=== PATIENT | male | born 1945 | race Caucasian/White ===

== ENCOUNTER 2019-05-26 18:04 | Inpatient (IN) ==
[~2019-05-26 18:04] MED LIST: SOLU-MEDROL IV SCH
[2019-05-26] MEDS ORDERED: DUONEB (A & A) ONE (18:08)
[2019-05-26] MEDS ORDERED: DUONEB (A & A) INH ONE (18:12)
[2019-05-26] MEDS ORDERED: SOLU-MEDROL IV ONE (18:13)
[2019-05-26] MEDS ORDERED: MAGNESIUM SULFATE 1 GM/D5W 1 GM/100 ML IVPB IV ONE (18:14)
[2019-05-26 18:29] LABS: BASO# 0.07 X1000 (0.0-0.2); BASO% 0.6 % (0.0-0.8); EOS# 0.41 X1000 (0.0-0.7); EOS% 3.3 % (0.0-10.0); HEMATOCRIT 52.8 % (42.0-52.0); HEMOGLOBIN 16.4 g/dL (14.0-18.0); IMM GRAN# 0.05 X1000 (0.0-0.04); IMM GRAN% 0.4 % (0.0-0.5); LYMPH# 3.04 X1000 (1.2-3.4); LYMPH% 24.3 % (20.5-51.1); MCH 27.4 PG (27-31); MCHC 31.1 g/dL (33-37); MCV 88.3 FL (81-99); MONO# 1.33 X1000 (0.11-0.59); MONO% 10.6 % (1.7-9.3); MPV 11.7 FL (7.4-10.4); NEUT# 7.61 X1000 (1.4-6.5); NEUT% 60.8 % (42.2-75.2); PLT 241 X1000 (130-400); RBC 5.98 XMIL (4.7-6.1); RDW 13.9 % (11.5-14.5); WBC 12.51 X1000 (4.8-10.8)
[2019-05-26 18:34] LABS: BLOOD TYPE ARTERIAL; SAMPLE BLOOD
[2019-05-26 18:35] LABS: HCO3-(ACT) 20.1 mmoll (20.0-26.0); METHB 0.8 % (0.0-1.5); O2(CT) 22.2 mL/dL (15.0-23.0); O2HB 94.5 % (95.0-99.0); PO2(98.6) 93 mmHg (60-100); SAO2 97.5 % (95.0-100.0); THB 16.7 g/dL (11.5-17.4)
[2019-05-26 18:39] LABS: MODALITY VENTIMASK; PCO2(98.6) 64 mmHg (35-45); pH(98.6) 7.18 (7.35-7.45)
[2019-05-26 18:40] LABS: ALLEN TEST YES
--- NOTE | 2019-05-26 18:48 | Diag Imaging Result Doc PS360 ---
CHEST-PORTABLE - 05/26/2019 INDICATION: sob COMPARISON: 09/29/2017 FINDINGS: Lung volumes are much lower. There is some nonspecific atelectasis or infiltrate in both lung bases as a result. Stable sternotomy changes. Heart size remains top normal. IMPRESSION: Much lower lung volumes. Nonspecific increasing atelectasis or infiltrate in both lung bases. Electronically signed by Reji Pablo 05/26/2019 6:46 PM
[2019-05-26 19:03] LABS: ALBUMIN 4.7 g/dL (3.5-5.0); CALCIUM 8.6 mg/dL (8.8-10.2); CREATININE 1.3 mg/dL (0.7-1.2); POTASSIUM 5.3 mmol/L (3.5-5.1); TOTAL BILIRUBIN 0.3 mg/dL (0.20-1.00); TOTAL PROTEIN 8.1 g/dL (6.3-8.3)
[2019-05-26 19:20] LABS: INR 0.96; PROTIME 13.3 Seconds (11.0-16.0)
[2019-05-26 19:21] LABS: PTT 33.2 Seconds (22.3-41.8)
--- NOTE | 2019-05-26 19:25 | PROVIDER DOCUMENTATION ---
This chart was entered by Yanira Mahoney Scribe, acting as scribe for Paco Ortiz MD. HPI-Respiratory General - General Chief Complaint: Shortness of Breath Stated Complaint: SOB / CHF Time Seen by Provider: 05/26/19 18:09 Source: RN/, RN notes reviewed Allergies/Adverse Reactions: Patient Allergies Allergy/AdvReac Type Severity Reaction Status Date / Time No Known Allergies Allergy Verified 05/26/19 18:14 - History of Present Illness-Resp Nature of Presenting Problem: pt is a 74 yom arriving via private car for sob starting this am and low o2. pt has hx of chf and copd, uses o2 at home but no portable tank. pt is wheezing, hypoxic and in mild distress in er. pt former smoker. Quality of Pain: reports: none Severity in ED: reports: mild Onset/Duration: reports: this morning Timing: reports: still present Exposure: reports: unknown cause Cough Quality/Degree: reports: no cough Review of Systems - Adult - REVIEW OF SYSTEMS - ADULT Constitutional: reports: no symptoms reported. denies: chills, fever, fatique Eyes: reports: no symptoms reported Ears, Nose, Mouth & Throat: reports: no symptoms reported Cardiovascular: reports: no symptoms reported Respiratory: reports: see HPI, shortness of breath, wheezing, other (hypoxic). denies: chronic cough, cough, excessive sputum production Gastrointestinal: reports: no symptoms reported Genitourinary: reports: no symptoms reported Musculoskeletal: reports: no symptoms reported Integumentary: reports: no symptoms reported Neurological: reports: no symptoms reported Psychiatric: reports: no symptoms reported Endocrine: reports: no symptoms reported Hematologic/Lymphatic: reports: no symptoms reported Allergic/Immunologic: reports: no symptoms reported All Other Systems: Reviewed and Negative Past History - Adult - PAST MEDICAL HISTORY-ADULT Review of Records: reports: Old Records Reviewed, Nursing Assessment Review, Medications Reviewed, Social history reviewed & non-contributory. Major Childhood Illnesses: reports: denies history Cardiovascular: reports: CHF Respiratory: reports: COPD Gastrointestinal: reports: denies history Obstetrical/Gynecological: reports: denies history Genitourinary: reports: denies history Musculoskeletal: reports: denies history Neurological: reports: denies history Endocrine/Immune: reports: denies history Other Conditions: reports: denies history - PRIOR SURGERIES/PROCEDURES Surgical/Procedure History: reports: other - IMMUNIZATION STATUS Childhood Immunizations: See Nurse Assessment Flu Vaccine: See Nurse Assessment - FAMILY HISTORY Family History: reviewed, not pertinent - SOCIAL HISTORY Smoking: other (former smoker, used to smoke 3 packs daily for years) Substance Use: none/never Physical Exam-General - PHYSICAL EXAM-ADULT Initial Vital Signs Reviewed: Yes - CONSTITUTIONAL General Appearance: alert, mild distress. negative: anxious, lethargic, combative - EYES Eyes: PERRL/EOMI, pink conjunctivae - HEAD, EARS, NOSE, MOUTH & THROAT HENMT: normocephalic/atraumatic, moist mucous membranes, normal ENT inspection - NECK Neck: non-tender, full range of motion, supple, normal inspection - RESPIRATORY Respiratory: chest non-tender, normal breath sounds, no pleuratic chest pain, no accessory muscle use, respiratory distress, wheezing. negative: lungs clear, no respiratory distress, decreased breath sounds - CARDIOVASCULAR Cardiovascular: normal peripheral pulses, no edema, no gallop, no JVD, no murmur , tachycardia. negative: regular rate, rhythm, JVD, bradycardia - GASTROINTESTINAL (ABDOMEN) Abdominal Exam: normal bowel sounds, non tender, soft - LYMPHATIC Lymphatic: no adenopathy - MUSCULOSKELETAL Back Exam: normal inspection, no CVA tenderness, no vertebral tenderness Extremity: normal range of motion, non-tender, normal inspection Peripheral Pulses: radial (R): 2+, radial (L): 2+ - SKIN Integumentary: normal color, normal turgor, warm/dry - NEUROLOGIC Neurologic: grossly normal, no motor/sensory deficits - PSYCHIATRIC Psych/Mental Status: normal mood/affect, normal thought content, normal thought process, oriented x 3 Progress - PLAN OF CARE/RESULTS Progress/Plan/Lab Results: Vital Signs - 8 hr 05/26/19 18:09 05/26/19 18:25 Temperature 98 F Pulse Rate 113 H 113 H Respiratory Rate 29 H 28 H O2 Sat by Pulse Oximetry 90 L 98 Laboratory Results - last 24 hr 05/26/19 05/26/19 05/26/19 18:11 18:11 18:11 WBC 12.51 H RBC 5.98 Hgb 16.4 Hct 52.8 H MCV 88.3 MCH 27.4 MCHC 31.1 L RDW Std Deviation 13.9 Plt Count 241 MPV 11.7 H Immature Gran % (Auto) 0.4 Neut % (Auto) 60.8 Lymph % (Auto) 24.3 Schuyler % (Auto) 10.6 H Eos % (Auto) 3.3 Baso % (Auto) 0.6 Immature Gran # (Auto) 0.05 H Neut # (Auto) 7.61 H Lymph # (Auto) 3.04 Schuyler # (Auto) 1.33 H Eos # (Auto) 0.41 Baso # (Auto) 0.07 PT INR PTT (Actin FS) Specimen Type Sample Site pH pCO2 pO2 HCO3 Base Excess Oxyhemoglobin ABG O2 Sat (Calculated) ABG O2 Saturation ABG Carboxyhemoglobin ABG Methemoglobin Krishna Test A-a O2 Difference Total Hemoglobin Lactate Liter Flow Blood Gas Modality FiO2 % Sodium Potassium Chloride Carbon Dioxide Anion Gap BUN Creatinine Estimated GFR/1.73 m2 BUN/Creatinine Ratio Glucose Calculated Osmolality Calcium Total Bilirubin AST ALT Alkaline Phosphatase Creatine Kinase 66 Troponin T < 0.010 [id number]-Hmgeyzezdqr Pept Total Protein Albumin Globulin Albumin/Globulin Ratio Plasma Lactate 05/26/19 05/26/19 05/26/19 18:11 18:11 18:11 WBC RBC Hgb Hct MCV MCH MCHC RDW Std Deviation Plt Count MPV Immature Gran % (Auto) Neut % (Auto) Lymph % (Auto) Schuyler % (Auto) Eos % (Auto) Baso % (Auto) Immature Gran # (Auto) Neut # (Auto) Lymph # (Auto) Schuyler # (Auto) Eos # (Auto) Baso # (Auto) PT 13.3 INR 0.96 PTT (Actin FS) 33.2 Specimen Type Sample Site pH pCO2 pO2 HCO3 Base Excess Oxyhemoglobin ABG O2 Sat (Calculated) ABG O2 Saturation ABG Carboxyhemoglobin ABG Methemoglobin Krishna Test A-a O2 Difference Total Hemoglobin Lactate Liter Flow Blood Gas Modality FiO2 % Sodium 140 Potassium 5.3 H Chloride 104 Carbon Dioxide 23 L Anion Gap 13 BUN 19 Creatinine 1.3 H Estimated GFR/1.73 m2 54 BUN/Creatinine Ratio 15 Glucose 157 H Calculated Osmolality 285 Calcium 8.6 L Total Bilirubin 0.30 AST 13 ALT 8 L Alkaline Phosphatase 106 Creatine Kinase Troponin T Fgs-D-Oazbtiathaa Pept 1987 H Total Protein 8.1 Albumin 4.7 Globulin 3.0 Albumin/Globulin Ratio 1.0 Plasma Lactate 05/26/19 05/26/19 18:11 18:12 WBC RBC Hgb Hct MCV MCH MCHC RDW Std Deviation Plt Count MPV Immature Gran % (Auto) Neut % (Auto) Lymph % (Auto) Schuyler % (Auto) Eos % (Auto) Baso % (Auto) Immature Gran # (Auto) Neut # (Auto) Lymph # (Auto) Schuyler # (Auto) Eos # (Auto) Baso # (Auto) PT INR PTT (Actin FS) Specimen Type ARTERIAL Sample Site R RADIAL pH 7.18 L* pCO2 64 H* pO2 93 HCO3 20.1 Base Excess -6.0 L Oxyhemoglobin 94.5 L ABG O2 Sat (Calculated) 22.2 ABG O2 Saturation 97.5 ABG Carboxyhemoglobin 2.30 ABG Methemoglobin 0.8 Krishna Test YES A-a O2 Difference 184.0 Total Hemoglobin 16.7 Lactate 1.80 Liter Flow 15.0 Blood Gas Modality VENTIMASK FiO2 % 40.0 Sodium Potassium Chloride Carbon Dioxide Anion Gap BUN Creatinine Estimated GFR/1.73 m2 BUN/Creatinine Ratio Glucose Calculated Osmolality Calcium Total Bilirubin AST ALT Alkaline Phosphatase Creatine Kinase Troponin T Tqf-D-Tkjptyzjfat Pept Total Protein Albumin Globulin Albumin/Globulin Ratio Plasma Lactate 1.8 Orders Category Date Time Status Cardiac Monitoring DIRECTED Care 05/26/19 18:15 Active Cardiac Monitoring DIRECTED Care 05/26/19 18:59 Completed IV Insertion ORDERED Care 05/26/19 18:59 Completed Notify MD of + Sepsis Screen NOW Care 05/26/19 18:59 Active Oxygen Therapy- ED Nursing DIRECTED Care 05/26/19 18:13 Active CHEST-PORTABLE [RAD] Stat Exams 05/26/19 18:14 Completed ABG [RESP] Routine Lab 05/26/19 18:12 Completed BLOOD CULTURE [BLDCUL] Stat Lab 05/26/19 19:25 Ordered BNP [PRO B-NATRIURETIC PEPTIDE] Stat Lab 05/26/19 18:11 Completed CBC WITH ELECTRONIC DIFF [HEME] Stat Lab 05/26/19 18:11 Completed CK PROFILE [SP CHEM] Stat Lab 05/26/19 18:11 Completed CMP [COMPREHENSIVE METABOLIC PANEL] [CHEM] Stat Lab 05/26/19 18:11 Completed LACTATE, PLASMA [CHEM] Lab 05/26/19 21:10 Uncollected LACTATE, PLASMA [CHEM] Lab 05/27/19 00:10 Uncollected LACTATE, PLASMA [CHEM] Q3H Lab 05/26/19 18:11 Completed PROTIME WITH INR [COAG] Stat Lab 05/26/19 18:11 Completed PTT [COAG] Stat Lab 05/26/19 18:11 Completed TROPONIN T Stat Lab 05/26/19 18:11 Completed Albuterol 2.5MG/Ipratrop 0.5MG [Duoneb (A & A)] Med 05/26/19 18:08 Discontinued 3 ml .ROUTE .STK-MED ONE Albuterol 2.5MG/Ipratrop 0.5MG [Duoneb (A & A)] Med 05/26/19 18:12 Discontinued 3 ml INH NOW ONE Levofloxacin 750 mg/D5w [Levaquin 750 mg/D5w] Med 05/26/19 19:26 Active 750 mg in 150 ml IV NOW Magnesium Sulfate 1 gm/D5w Med 05/26/19 18:14 Discontinued 1 gm in 100 ml IV NOW Methylprednisolone Sod Succ [Solu-Medrol] Med 05/26/19 18:13 Discontinued 125 mg IV NOW ONE Aerosol Treatments Routine Oth 05/26/19 18:13 Completed Aerosol Treatments Stat Oth 05/26/19 18:13 Completed Aerosol Treatments Stat Oth 05/26/19 18:13 Completed Asthma/COPD (Adult) Stat Oth 05/26/19 18:12 Ordered Oxygen Device Stat Oth 05/26/19 18:13 Completed Pulse Oximetry Stat Oth 05/26/19 18:17 Completed EKG [EKG] Stat Ther 05/26/19 18:16 Ordered Result Diagrams: 05/26/19 18:11 05/26/19 18:11 - REASSESSMENT Reassessment #1 Time Reassessed: 19:40 Status: improving Reassessment Comment: nonlabored respirations,decreased wheezing - EKG 1 Time of EKG reading by physician:: 18:12 EKG Read and Signed by:: Paco Ortiz EKG Interpretation (*Must complete 3 of following elements*): Abnormal Rate: 113 (Bilat enlargement ) Rhythm: ST ST Wave: non-specific ST changes (st & t wave abnormality, consider lateral ischemia) Comments: anteroseptal infarct, age undetermined - XRAY 1 XRAY Study: Chest Impression: Abnormal, See EMR Report ( CHEST-PORTABLE - 05/26/2019 INDICATION: sob COMPARISON: 09/29/2017 FINDINGS: Lung volumes are much lower. There is some nonspecific atelectasis or infiltrate in both lung bases as a result. Stable sternotomy changes. Heart size remains top normal. IMPRESSION: Much lower lung volumes. Nonspecific increasing atelectasis or infiltrate in both lung bases. Electronically signed by Reji Pablo 05/26/2019 6:46 PM) Comparison with other Films: changes noted - CONSULTS/PCP/HOSPITALIST Notification #1 *Consult/PCP/Hospitalist*: Dr. Gross,hospitalist Time Discussed: 19:45 Consult Disposition: Admit Departure - Departure Date of Disposition Decision: 05/26/19 Time of Disposition Decision: 19:46 DIAGNOSIS: COPD exacerbation, Bilateral pulmonary infiltrates on chest x-ray Disposition: ADMITTED INPATIENT Certified Medical Emergency: Emergent Condition: Stable Referrals and Follow-Ups: Oliver Hyman [Primary Care Provider] - - Critical Care Note This patient required my direct & personal management of CC.: No Attestation - Physician/ GAGE Attestation Patient care was provided by Advanced Practice Provider:: No The physician spent face to face time with patient:: Yes Advanced Practice Provider documentation review:: Supervising physician onsite and consulted in the evaluation and care of this patient. The physician did have a face to face encounter with the patient. This chart was documented by the indicated scribe, (Yanira Mahoney Scribe) and accurately reflects the services I performed and decisions made by me, Paco Ortiz MD, as attested by the provider's signature.
[2019-05-26] MEDS ORDERED: LEVAQUIN 750 MG/D5W 750 MG/150 ML IVPB IV ONE (19:26)
[2019-05-26] MEDS ORDERED: HUMULIN R (PARKWAY) IV SCH (21:00)
[2019-05-26] MEDS: DUONEB (A & A) INH SCH (23:19)
[2019-05-27] MEDS: SOLU-MEDROL IV SCH ×4 (01:26→20:43)
[2019-05-27] MEDS: DUONEB (A & A) INH SCH (03:56)
[2019-05-27] MEDS: HUMULIN R (PARKWAY) SUBQ SCH ×4 (06:38→22:49)
[2019-05-27] MEDS ORDERED: XOPENEX NEB INH PRN (07:22)
[2019-05-27] MEDS: GLUCOPHAGE PO SCH (07:56)
[2019-05-27] MEDS: SYMBICORT 160/4.5 MICROGM INHALER INH SCH ×2 (08:16→19:52)
[2019-05-27] MEDS: XOPENEX NEB INH SCH ×5 (08:16→22:57)
[2019-05-27 08:21] LABS: ALBUMIN 4.3 g/dL (3.5-5.0); CREATININE 1.3 mg/dL (0.7-1.2); TOTAL BILIRUBIN 0.3 mg/dL (0.20-1.00); TOTAL PROTEIN 7.4 g/dL (6.3-8.3)
--- NOTE | 2019-05-27 12:16 | EKG Report ---
Test Performed on : 05/26/2019 6:11:23 PM Test Reason : pain Blood Pressure : / mmHG Vent. Rate : 113 BPM Atrial Rate : 113 BPM P-R Int : 162 ms QRS Dur : 098 ms QT Int : 316 ms P-R-T Axes : 076 071 096 degrees QTc Int : 433 ms Sinus tachycardia. Biatrial enlargement Anteroseptal infarct , age undetermined ST & T wave abnormality, consider lateral ischemia Abnormal ECG When compared with ECG of 26-MAR-2017 11:15, Vent. rate has increased BY 47 BPM Anteroseptal infarct is now present Nonspecific T wave abnormality has replaced inverted T waves in Inferior leads Unconfirmed Result
[2019-05-27] MEDS: ASPIRIN PO SCH ×2 (12:33→20:43)
[2019-05-27] MEDS: GLUCOTROL PO SCH (12:33)
[2019-05-27] MEDS: COREG PO SCH ×2 (12:35→20:43)
--- NOTE | 2019-05-27 13:26 | HISTORY AND PHYSICAL ---
PRIMARY CARE PROVIDER: Oliver Hyman MD CHIEF COMPLAINT: "Panic attack". HISTORY OF PRESENT ILLNESS: Mr. Hercules is a 74-year-old gentleman who carries a past medical history of COPD, congestive heart failure, coronary artery disease, diabetes mellitus, and left leg stenting who reported to the ED after he felt like he was trying to keep a panic attack at bay. Then he reports in the afternoon he became more short of breath and came to the ED to be evaluated. On arrival to the ED he was found to be hypoxemic. He was placed on a Ventimask. He was also found to be hypercarbic and found to be in COPD exacerbation as well as to have bilateral pulmonary infiltrates. He was admitted to the hospital and continued on supplemental O2, bronchodilators, IV steroids, and IV antibiotics for pneumonia. Overnight his O2 has greatly improved. His is now saturating well on room air. He is sitting up in the bed eating breakfast. He converses without any shortness of breath. He denied any chest pain, fever, or chills. He does have a chronic cough because of his COPD. He usually does have a productive cough, however, he reports recently that he has not been able to get anything up. There was no nausea and no vomiting. We will continue him in the hospital with IV antibiotics, bronchodilators, and start weaning his steroids. PAST MEDICAL HISTORY: 1. COPD. 2. Congestive heart failure. 3. Coronary artery disease. 4. Valve replacement. 5. Diabetes mellitus. 6. Stent in the left leg. PAST SURGICAL HISTORY: 1. Left lower extremity stent. 2. Heart valve surgery. He was unsure which valve. It was 7 years ago. FAMILY HISTORY: Father with coronary artery disease status post CABG, renal failure on hemodialysis, and at the age of 86. SOCIAL HISTORY: He is a of about a year. He has 5 children. 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 No alcohol. Ex-smoker for 30 years, a pack per day. No illicit drug use. ALLERGIES: No known drug allergies. HOME MEDICATIONS: 1. Aspirin 81 mg p.o. b.i.d. 2. Symbicort 160 mcg/4.5 mcg inhaler, 2 puffs inhaled b.i.d. 3. Coreg 25 mg p.o. b.i.d. 4. Glucotrol 5 mg p.o. daily. 5. Glucophage 500 mg p.o. with breakfast. 6. Incruse Ellipta 1 puff inhaled daily. 7. Also, not on his list is Plavix, enalapril, and ciprofloxacin eye drops. REVIEW OF SYSTEMS: A 12 point review of systems was completely negative except for those mentioned in the HPI. DIAGNOSTIC DATA: Initial chest x-ray showed nonspecific increasing atelectasis or infiltrates in both lung bases. Currently pending a.m. chest x-ray. LABORATORY DATA: White count is 12, hemoglobin and hematocrit 16 and 52, and platelet count 241. ABG is 7.18. CO2 is 64. O2 is 97% on 40% Ventimask. Sodium is 140, potassium 5.3, BUN 19, creatinine 1.3, and glucose 157. ProBNP was 1987. Blood lactate is 1.8. ASSESSMENT AND PLAN: 1. Chronic obstructive pulmonary disease exacerbation. We will continue with supplemental O2, bronchodilators, IV steroids, IV antibiotics, and aggressive pulmonary toilet. 2. Bilateral pulmonary infiltrates. The patient did have a slightly elevated white count. We will continue with IV Levaquin. Awaiting repeat chest x-ray. He denies any recent fever or chills. He does have a chronic cough and it is usually productive, however, recently he has not been able to bring anything up. 3. Congestive heart failure. He does not appear to be in any type of exacerbation. We will continue with home medications. 4. Diabetes mellitus. We will continue with home medications and sliding scale with pattern blood sugars. 5. He appears to have chronic kidney disease, however, he is below his baseline with his creatinine at 1.3. 6. Hypoxemic hypercapnic respiratory failure. Patient was placed on Ventimask overnight. He is currently saturating well on room air. He is able to eat his breakfast without any issues as well as converse with the staff without any shortness of breath. We will still continue to provide him with p.r.n. O2. 5. Further recommendations to follow physician evaluation, laboratory, and diagnostic data. Dictated by GISELLA Jay for Bulmaro Nova MD cc: MD Oliver Oliver MD
--- NOTE | 2019-05-27 13:52 | Diag Imaging Result Doc PS360 ---
CHEST-PORTABLE - 05/27/2019 INDICATION: dyspnea COMPARISON: 05/26/2019 FINDINGS: There is improvement in the faint infiltrate in the right lung base. Stable nonspecific interstitial infiltrate or scarring in the left lung base. No new infiltrates. IMPRESSION: Improved aeration of the right lung base. Electronically signed by Reji Pablo 05/27/2019 1:50 PM
--- NOTE | 2019-05-27 15:31 | HISTORY AND PHYSICAL ---
I saw the patient face to face and fully agree with the assessment and plan of nurse practitioner, Petra. This is a 74-year-old gentleman who presented to the emergency room with shortness of breath and wheezing along with cough/chest congestion. He has been diagnosed as having bilateral patchy infiltrates in both the lower lungs and has acute COPD exacerbation. Furthermore, he has type 2 diabetes as well. He is admitted and is being given broad-spectrum antibiotics along with bronchodilators and IV steroids. We will control his blood glucose levels with lispro insulin as per sliding scale. We will provide him supportive care. He seems to have improved since admission already, and he can probably be discharged home in the next 1 to 2 days if continues to improve in the same way. cc: Bulmaro Nova MD
[2019-05-27] MEDS: LEVAQUIN 750 MG/D5W 750 MG/150 ML IVPB IV SCH (20:42)
[2019-05-28] MEDS: SOLU-MEDROL IV SCH ×4 (02:08→19:51)
[2019-05-28] MEDS: XOPENEX NEB INH SCH ×6 (03:25→22:53)
[2019-05-28] MEDS: HUMULIN R (PARKWAY) SUBQ SCH ×4 (06:40→22:30)
[2019-05-28] MEDS: SYMBICORT 160/4.5 MICROGM INHALER INH SCH ×2 (07:52→19:24)
[2019-05-28] MEDS: GLUCOTROL PO SCH (09:57)
[2019-05-28] MEDS: GLUCOPHAGE PO SCH ×2 (09:57→19:16)
[2019-05-28] MEDS: COREG PO SCH ×2 (09:57→22:30)
[2019-05-28] MEDS: ASPIRIN PO SCH ×2 (09:58→22:30)
--- NOTE | 2019-05-28 11:39 | PROGRESS NOTE ---
DATE: 05/28/2019 SUBJECTIVE: The patient denies having any acute complaints and feels better as compared to yesterday. OBJECTIVE: Vital signs: Temperature 98.4 degrees, pulse 64 per minute, respiratory rate 20 per minute, blood pressure 122/77, pulse oximetry 100% on room air. General: The patient is alert and oriented x3. He does not appear to be in any acute distress. Cardiovascular: First and second heart sounds are audible without any murmurs or gallops. Respiratory: Bilateral lung air entry is good without any rales or rhonchi. He does have some expiratory wheeze when he coughs, however. Gastrointestinal: Abdomen is soft and nondistended. Normal bowel sounds are present. Musculoskeletal: No deformities are present. DIAGNOSTIC DATA: No new labs have been done. IMPRESSION: 1. Bilateral pneumonia with chronic obstructive pulmonary disease exacerbation. 2. Type 2 diabetes mellitus. PLAN: We will continue him on levofloxacin along with methylprednisolone intravenously. He is scared to go home and be discharged because he has issue with severe hyperglycemia secondary to steroids. I would therefore keep him another day to give him more relief, and then hopefully he can be discharged home without any oral systemic steroids. He will be continued on bronchodilators as well as regular insulin as per sliding scale. He will also continue with his routine medications including metformin and glipizide. I am going to bump his metformin dosage from 500 mg once daily to 1000 mg orally twice daily. Further recommendations will be as per hospital course. cc: Bulmaro Nova MD
[2019-05-28] MEDS: LEVAQUIN 750 MG/D5W 750 MG/150 ML IVPB IV SCH (19:52)
[2019-05-28] MEDS: VASOTEC PO SCH (22:30)
[2019-05-29] MEDS: SOLU-MEDROL IV SCH (01:47)
[2019-05-29] MEDS: XOPENEX NEB INH SCH ×3 (03:39→12:13)
[2019-05-29] MEDS: HUMULIN R (PARKWAY) SUBQ SCH ×2 (06:32→10:26)
[2019-05-29 07:17] LABS: HEMATOCRIT 47.2 % (42.0-52.0); LYMPH% 4.2 % (20.5-51.1); MCH 27.3 PG (27-31); MCHC 31.8 g/dL (33-37); MCV 85.8 FL (81-99); MPV 11.9 FL (7.4-10.4); NEUT% 92.8 % (42.2-75.2); PLT 203 X1000 (130-400); RDW 13.8 % (11.5-14.5); WBC 21.04 X1000 (4.8-10.8)
[2019-05-29 07:18] LABS: BASO# 0.01 X1000 (0.0-0.2); IMM GRAN# 0.06 X1000 (0.0-0.04); IMM GRAN% 0.3 % (0.0-0.5); LYMPH# 0.88 X1000 (1.2-3.4); MONO# 0.56 X1000 (0.11-0.59); MONO% 2.7 % (1.7-9.3); NEUT# 19.53 X1000 (1.4-6.5)
[2019-05-29 07:29] LABS: CALCIUM 8.8 mg/dL (8.8-10.2); CREATININE 1.7 mg/dL (0.7-1.2); POTASSIUM 4.5 mmol/L (3.5-5.1)
[2019-05-29 08:10] VITALS: BP 147/62
[2019-05-29] MEDS: SYMBICORT 160/4.5 MICROGM INHALER INH SCH (08:57)
[2019-05-29] MEDS ORDERED: PLAVIX PO SCH (09:00)
[2019-05-29] MEDS ORDERED: LEVAQUIN PO SCH (09:00)
[2019-05-29 10:02] LABS: LYMPHS 7 % (21-51); MONO 2 % (1-9); SEGS 91 % (42-75)
[2019-05-29] MEDS: VASOTEC PO SCH (10:19)
[2019-05-29] MEDS: GLUCOTROL PO SCH (10:20)
[2019-05-29] MEDS: COREG PO SCH (10:20)
[2019-05-29] MEDS: ASPIRIN PO SCH (10:20)
[2019-05-29] MEDS: GLUCOPHAGE PO SCH (10:21)
--- NOTE | 2019-05-30 09:19 | DISCHARGE SUMMARY ---
ADMISSION DATE: 05/26/2019 DISCHARGE DATE: 05/29/2019 PRIMARY CARE PHYSICIAN: Dr. Oliver Hyman ADMISSION DIAGNOSES: 1. Chronic obstructive pulmonary disease exacerbation. 2. Bilateral pulmonary infiltrates. 3. Congestive heart failure. 4. Diabetes type 2. 5. Chronic kidney disease. 6. Hypoxemic hypercapnic respiratory failure. DISCHARGE DIAGNOSES: 1. Bilateral pneumonia with chronic obstructive pulmonary disease exacerbation. 2. Diabetes type 2. SUMMARY OF FINDINGS: This is a 74-year-old male who presented to the ED when he felt like he was trying to have a panic attack, became short of breath. On arrival, he was found to be hypoxemic, was placed on a Venti mask, was also found to be hypercarbic and in a chronic obstructive pulmonary disease exacerbation as well as having bilateral pulmonary infiltrates. He was admitted, placed on O2 supplementation, bronchodilators, IV steroids, IV antibiotics, and aggressive pulmonary toilet. He has responded well and he is now saturating 95% on room air and it is felt that now he can safely be discharged home. DISCHARGE MEDICATIONS: 1. Aspirin 81 mg p.o. b.i.d., Symbicort 160/4.5 two puffs inhalation b.i.d., carvedilol 25 mg p.o. b.i.d., Plavix 75 mg p.o. daily, enalapril 2.5 mg p.o. b.i.d. 2. Glipizide 5 mg p.o. daily, Levaquin 500 mg p.o. daily #7 with no refills, Glucophage 500 mg p.o. b.i.d. 3. ProAir 1 inhalation p.r.n. and Incruse Ellipta 62.5 mg inhalation daily. FOLLOWUP: He needs to follow up with his primary care physician in the next 1 to 2 weeks and call the office for an appointment. DISCHARGE INSTRUCTIONS: All discharge instructions have been reviewed with the patient and he verbalized understanding. TIME SPENT: This is a 35 minute discharge. Dictated by GISELLA Amaya for Leonardo Gross MD cc: MD Rabia Lr CRNP Gregory S. Cheatham, MD
--- NOTE | 2019-05-30 13:39 | DISCHARGE SUMMARY ---
ADMISSION DATE: 05/26/2019 DISCHARGE DATE: 05/29/2019 ADDENDUM: Patient seen and examined by myself. Full note dictated and discussed with nurse practitioner. Patient presented to the hospital, treated for pneumonia. He was placed on antibiotics, Solu-Medrol. On discharge he is awake, alert. Notes he is feeling tremendously better and therefore he will be discharged home. Please see full dictation. cc: Leonardo Gross MD
== END 2019-05-29 13:50 | disposition home or self-care (01) | DRG 871 ==
LOC: P.ED 18:04 → SUATTDRO 20:48 → P.MEDSURG 20:48
PROVIDERS: ATTEND Family Medicine